=== PATIENT | male | born 1990 | race Caucasian/White ===

== ENCOUNTER 2016-11-03 11:13 | Emergency (ER) | payer OTHER ==
[~2016-11-03] VITALS: Ht 182.9 cm; Wt 84.1 kg
[2016-11-03 11:16] VITALS: BP 156/86; PULSE 87; RESP 18; O2SAT 98
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
== END 2016-11-03 12:08 ==
LOC: SED 11:13
DX: S00.91XA Abrasion of unspecified part of head, initial encounter (principal); Z02.89 Encounter for other administrative examinations; Y35.893A Legal intervention involving other specified means, suspect injured, initial encounter; Y93.9 Activity, unspecified; Y92.9 Unspecified place or not applicable; Y99.9 Unspecified external cause status; F17.200 Nicotine dependence, unspecified, uncomplicated

== ENCOUNTER 2017-01-08 23:04 | Emergency (ER) | payer OTHER ==
[~2017-01-08] VITALS: Ht 185.4 cm; Wt 88.6 kg
[2017-01-08 22:50] VITALS: BP 157/82; PULSE 69; RESP 16; O2SAT 97
--- NOTE | 2017-01-08 23:05 | ED.REPORT ---
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 Physical Exam Initial Vital Signs Vital Signs (First) Date Time Temp Pulse Resp B/P Pulse Ox O2 Delivery O2 Flow Rate FiO2 01/08/17 23:06 37.3 99 19 146/91 97 Room Air Initial VS: Reviewed Head / Eyes: Atraumatic, Normocephalic Neck: Supple, Full range of motion Respiratory: Breath sounds normal, Clear to auscultation, No respiratory distress Cardiovascular: Regular rate & rhythm, Heart sounds normal, Intact distal pulses Abdomen / GI: Soft, Non-tender Extremities: Vascular intact, Neuro intact Skin: Warm, Dry, No cyanosis General/Constitutional: Awake, Alert, Cooperative Neurologic: Oriented X3, Speech NL Re-Eval/Medical Decision Source of Hx: Old records Counseled Regarding: Diagnosis, Lab results, Need for follow-up, When/why to return to ED Discharge & Departure Disposition: Home Discharge Condition All VS Reviewed: Yes Condition: Stable Referrals: [facility] Res[facility] Scribdimitry Attestation Portions of this note were transcribed by Rosemary Lomeli. I, Dr. Alonzo personally performed the history, physical exam and medical decision-making; I reviewed and confirmed the accuracy of the information in the transcribed note. Signed by : Gemma Harmon, 01/09/17 and 00:50. copies to: [facility] Kevin Alonzo DO Jan 08, 2017 23:05 Rosemary Bermudez Jan 08, 2017 23:31 Kevin Alonzo DO Jan 08, 2017 23:05 Rosemary Bermudez Jan 08, 2017 23:31
[2017-01-08 23:06] VITALS: BP 146/91; PULSE 99; RESP 19; O2SAT 97
[2017-01-08 23:10] VITALS: BP 146/91; PULSE 99; RESP 16; O2SAT 97
--- NOTE | 2017-01-08 23:41 | ED.REPORT ---
HPI-Psychiatric Illness Date of Service Jan 08, 2017 ED Provider: Thor Street MD Pt is a 26 year old male with a hx of Bipolar presenting to the ED via law enforcement for a mental health evaluation. He reports suicidal ideation, paranoid thoughts and visual and auditory hallucinations. He wrote something online expressing violent homicidal ideation toward his father, and threatened to commit suicide so his friend called 911. Nursing Notes Stated Complaint: SUICIDAL Chief Complaint: Psychiatric Complaint Nursing Notes Reviewed: Yes Allergies: Coded Allergies: No Known Allergies (Unverified , 11/03/16) General Time Seen by MD: 23:29 Chief Complaint Bizarre behavior Hx Obtained From: Police Arrived By: Police Onset Occurred: Onset unknown Symptom Duration: Since onset Recent Healthcare: No recent doctor visit, No recent hospitalization Similar Sx Previous: No Risk-Psychiatric Illness Suicide Risk Stratification Suicide Risk Factors - Adult: : Family Hx of Suicide: Prior psych admission RF Statements: Risk factors reviewed Past Medical History Past Medical History Bipolar Ankle fracture Past Surgical History 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 Smoking History Current Every Day Smoker Social History Alcohol Use: "Social" Drug Use: Denies drug use Other Social History: Lives with parents 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 Ambulatory Status Independent Review of Systems Unable to Obtain ROS Mental status Psychiatric: Reports: Agitation, Hallucinations, auditory, Hallucinations, visual, Homicidal ideation, Suicidal ideation Physical Exam Initial Vital Signs Vital Signs (First) Date Time Temp Pulse Resp B/P Pulse Ox O2 Delivery O2 Flow Rate FiO2 01/08/17 23:06 37.3 99 19 146/91 97 Room Air Initial VS: Reviewed, Vital signs abnormal Head / Eyes: Atraumatic, Normocephalic, PERRL ENT: Mucous membranes moist, Conjunctiva normal, No scleral icterus Neck: Supple, Non-tender, Full range of motion Respiratory: No respiratory distress Abdomen / GI: No distention Extremities: Vascular intact, Neuro intact, No swelling, No tenderness Skin: Warm, Dry, No cyanosis General/Constitutional: Awake, Alert Neurologic: Oriented X3, Speech NL, No motor deficits, CN II - XII intact PSYCHIATRIC: Very sarcastic, appears angry, homicidal ideation and statements. Interpretation & Diagnostics Interpretation & Diagnostics: Urine Tox positive for marijuana Lab Results Interpretation Result Diagram: 01/08/17 2335 01/08/17 2335 Test 01/08/17 23:35 01/09/17 03:00 White Blood Count 10.5th/mm3 (3.8-10.1) Red Blood Count 5.37mil/mm3 (4.40-5.80) Hemoglobin 15.8g/dL (13.8-17.2) Hematocrit 44.6% (41.0-50.0) Mean Corpuscular Volume 83.1fL (81-100) Mean Corpuscular Hemoglobin 29.4pg (27.0-35.0) Mean Corpuscular Hemoglobin Concent 35.4% (32.0-37.0) Red Cell Distribution Width 12.5% (12.3-15.4) Platelet Count 272bil/L (150-400) Neutrophils (%) (Auto) 58.1% (40-74) Lymphocytes (%) (Auto) 31.6% (14-46) Monocytes (%) (Auto) 7.2% (4-12) Eosinophils (%) (Auto) 2.3% (0-5) Basophils (%) (Auto) 0.5% (0-3) Sodium Level 138mEq/L (134-144) Potassium Level 3.6mEq/L (3.5-5.2) Chloride Level 98mEq/L (97-108) Carbon Dioxide Level 21mmol/L (18-29) Blood Urea Nitrogen 13mg/dL (6-20) Creatinine 1.07mg/dL (0.76-1.27) Estimat Glomerular Filtration Rate 90mL/min (>59) Glucose Level 108mg/dL (60-99) Calcium Level 9.2mg/dL (8.5-10.1) Total Bilirubin 0.4mg/dL (0.0-1.2) Aspartate Amino Transf (AST/SGOT) 16U/L (0-50) Alanine Aminotransferase (ALT/SGPT) 21U/L (0-44) Alkaline Phosphatase 74U/L (25-150) Total Protein 7.9g/dL (6.4-8.4) Albumin 4.6g/dL (3.4-5.0) Thyroid Stimulating Hormone (TSH) 4.820uIU/mL (0.450-4.500) Hold Arias Top Tube Received (Received) Alcohols < 10mg/dL (0-10) Hold Urine Received (Received) Lab values outside NL range: no clinical significance. Re-Eval/Medical Decision Med Decision/Clinical Course 26-year-old male who has had multiple episodes of paranoia and delusions with bizarre homicidal statements. He was brought in by police and he was detained by the DCR. Please see the DCR's note for details. Re-Evaluation/Progress : Time of Eval: 23:25 Re-Evaluation/Progress Note: Pt put in seclusion. Counseled Regarding: Diagnosis, Lab results, Need for transfer Discharge & Departure Disposition: Transfer, Psychiatric Inpt Discharge Condition All VS Reviewed: Yes Condition: Stable Referrals: [facility] Res[facility] Scribe Attestation Portions of this note were transcribed by Vaishali Park. I, Dr. Street personally performed the history, physical exam and medical decision-making; I reviewed and confirmed the accuracy of the information in the transcribed note. Signed by: Gemma More, 01/08/2017 at 0600. copies to: [facility] Res[facility] Thor Street MD Jan 08, 2017 23:41 VAISHALI PARK Jan 08, 2017 23:43
[2017-01-08 23:48] LABS: BASOPHILS % (AUTO) 0.5 % (0-3); EOSINOPHILS % (AUTO) 2.3 % (0-5); MONOCYTES % (AUTO) 7.2 % (4-12); Mean Corpuscular Hemoglobin 29.4 pg (27.0-35.0); Mean Corpuscular Volume 83.1 fL (81-100); NEUTROPHILS % (AUTO) 58.1 % (40-74); Platelet Count 272 bil/L (150-400)
[2017-01-08] MEDS ORDERED: OLANZapine Zydis ODT 5 mg Tablet PO SCH (23:58)
[2017-01-09 04:19] VITALS: BP 134/78; PULSE 104; RESP 16; O2SAT 98
[2017-01-09 04:47] VITALS: BP 134/78; PULSE 104; RESP 16; O2SAT 98
== END 2017-01-09 04:48 | disposition other institution (70) ==
LOC: SED 23:04
DX: F23 Brief psychotic disorder (principal); F17.200 Nicotine dependence, unspecified, uncomplicated
CPT/HCPCS: 36415; 80053; 81002; 82075; 84443; 85025; 99285; G0480